=== PATIENT | female | born 1990 | race American Indian/Alaskan Native ===

== ENCOUNTER 2018-12-03 14:20 | Emergency (ER) | payer OTHER ==
--- NOTE | 2018-12-03 14:42 | Event Note ---
ED Screening Note ED Screening Note: pt present with c/o frontal MAN that began three days ago Nausea and one episode of vomiting hx of migraines states she has been taking BC powder, advil, aleve, tylenol, excedrin migraine LNMP: november 19, 2018 This initial assessment/diagnostic orders/clinical plan/treatment(s) is/are subject to change based on patients health status, clinical progression and re- assessment by fellow clinical providers in the ED. Further treatment and workup at subsequent clinical providers discretion. Patient/guardian urged not to elope from the ED as their condition may be serious if not clinically assessed and managed. Initial orders include: urine preg, UA
[2018-12-03 14:44] VITALS: BP 121/78
[2018-12-03 15:20] LABS: HCG Qualitative,Urine Negative (Negative)
[2018-12-03 15:23] LABS: Bilirubin,Urine NEG (Negative); Blood,Urine NEG (Negative); Color,Urine Straw (Yellow); Mucus,Urine FEW /HPF; Protein,Urine <15 mg/dL mg/dL (Negative); Urobilinogen,Urine < 2.0 mg/dL (<2.0); WBC,Urine < 1.0 /HPF (0.0-6.0)
[2018-12-03] MEDS ORDERED: ZOFRAN IM ONE (15:57)
[2018-12-03] MEDS ORDERED: TORADOL IM ONE (15:57)
--- NOTE | 2018-12-03 16:42 | Emergency Department Report ---
ED Headache HPI - General Chief Complaint: Headache Stated Complaint: HEADACHE Time Seen by Provider: 12/03/18 14:40 - History of Present Illness Initial Comments: Patient is a 28-year-old female past history of migraines was at a headache last 3 days. Left greater than right. Patient states [id number] medications are not helping. Patient denies nausea or light sensitivity. Patient states this is different from her normal migraine. Patient feels congestion in the face and a throbbing sensation. Patient states the pain is 6 out of 10 in severity. Patient believes she may have had a slight fever earlier today as well. Denies cough or sore throat neck stiffness. Allergies/Adverse Reactions: Allergies No Known Allergies Allergy (Verified 06/08/13 21:47) Home Medications: Ambulatory Orders Albuterol Sulfate [Accuneb] 1.25 mg IH TID PRN 06/09/13 Cetirizine HCl [Cetirizine 10mg chew] 10 mg PO DAILY 06/09/13 Mometasone/Formoterol [Dulera 100 Mcg/5 Mcg Inhaler] 2 puff IH QHS 06/09/13 Montelukast [Singulair] 10 mg PO DAILY 06/09/13 Citalopram [Celexa] 20 mg PO DAILY #7 tablet 06/12/13 Nicotine [Habitrol] 21 mg TD QDAY #7 patch 06/12/13 Amoxicillin/Potassium Clav [Augmentin 875-125 Tablet] 1 each PO BID #14 tablet 12/03/18 Fluticasone [Flonase] 1 spray NS QDAY #1 bottle 12/03/18 Ibuprofen [Motrin 600 MG tab] 600 mg PO Q8H PRN #20 tablet 12/03/18 predniSONE [Deltasone] 20 mg PO QDAY #5 tab 12/03/18 traMADol [Ultram] 50 mg PO Q6HR PRN #12 tablet 12/03/18 ED Review of Systems ROS: Stated complaint: HEADACHE Other details as noted in HPI Comment: All other systems reviewed and negative ED Past Medical Hx - Past Medical History Previous Medical History?: Yes Hx Congestive Heart Failure: No Hx Diabetes: No Hx Renal Disease: Yes Hx Headaches / Migraines: Yes Hx Asthma: Yes Hx COPD: No Additional medical history: previously treated for "kidney failure" - Surgical History Past Surgical History?: Yes Additional Surgical History: tonsillectomy - Social History Smoking Status: Current Every Day Smoker Substance Use Type: Alcohol, Marijuana - Medications Home Medications: Home Medications Medication Instructions Recorded Confirmed Last Taken Type Albuterol Sulfate [Accuneb] 1.25 mg IH TID PRN 06/09/13 06/09/13 Unknown History Cetirizine HCl [Cetirizine 10mg 10 mg PO DAILY 06/09/13 06/09/13 Unknown History chew] Mometasone/Formoterol [Dulera 100 2 puff IH QHS 06/09/13 06/09/13 05/13/13 History Mcg/5 Mcg Inhaler] 2 puffs Montelukast [Singulair] 10 mg PO DAILY 06/09/13 06/09/13 Unknown History Citalopram [Celexa] 20 mg PO DAILY #7 tablet 06/12/13 Unknown Rx Nicotine [Habitrol] 21 mg TD QDAY #7 patch 06/12/13 Unknown Rx Amoxicillin/Potassium Clav 1 each PO BID #14 tablet 12/03/18 Unknown Rx [Augmentin 875-125 Tablet] Fluticasone [Flonase] 1 spray NS QDAY #1 bottle 12/03/18 Unknown Rx Ibuprofen [Motrin 600 MG tab] 600 mg PO Q8H PRN #20 tablet 12/03/18 Unknown Rx predniSONE [Deltasone] 20 mg PO QDAY #5 tab 12/03/18 Unknown Rx traMADol [Ultram] 50 mg PO Q6HR PRN #12 tablet 12/03/18 Unknown Rx ED Physical Exam - General Limitations: No Limitations General appearance: alert, in no apparent distress - Head Head exam: Present: atraumatic, normocephalic - Expanded Head Exam Expanded 1 - tenderness - Eye Eye exam: Present: normal appearance, PERRL, EOMI - ENT ENT exam: Present: mucous membranes moist - Neck Neck exam: Present: normal inspection - Respiratory Respiratory exam: Present: normal lung sounds bilaterally. Absent: respiratory distress, wheezes, rales, rhonchi, stridor - Cardiovascular Cardiovascular Exam: Present: regular rate, normal rhythm. Absent: systolic murmur, diastolic murmur, rubs, gallop - GI/Abdominal GI/Abdominal exam: Present: soft, normal bowel sounds. Absent: distended, tenderness, guarding, rebound - Extremities Exam Extremities exam: Present: normal inspection - Back Exam Back exam: Present: normal inspection - Neurological Exam Neurological exam: Present: alert, oriented X3 - Psychiatric Psychiatric exam: Present: normal affect, normal mood - Skin Skin exam: Present: warm, dry, intact, normal color. Absent: rash ED Course Vital Signs 12/03/18 14:41 Temperature 98.5 F Pulse Rate 79 Respiratory 18 Rate Blood Pressure 121/78 O2 Sat by Pulse 99 Oximetry ED Medical Decision Making - Medical Decision Making Patient likely with the sinus infection. Patient is tender to palpation. Patie nt will be started on Augmentin and given medications for symptomatic relief. Critical care attestation.: If time is entered above; I have spent that time in minutes in the direct care of this critically ill patient, excluding procedure time. ED Disposition Clinical Impression: Acute sinus infection Qualifiers: Sinusitis location: frontal Recurrence: non-recurrent Qualified Code(s): J01.10 - Acute frontal sinusitis, unspecified Headache Qualifiers: Headache type: unspecified Headache chronicity pattern: acute headache Intractability: not intractable Qualified Code(s): R51 - Headache Disposition: DC-01 TO HOME OR SELFCARE Is pt being admited?: No Does the pt Need Aspirin: No Condition: Stable Instructions: Sinusitis (ED) Referrals: CHELSIE CALZADA MD [Primary Care Provider] - 3-5 Days Time of Disposition: 16:43
== END 2018-12-03 17:02 | disposition home or self-care (01) ==
LOC: ED 14:20
DX: J01.10 Acute frontal sinusitis, unspecified (principal); R51 Headache; G43.909 Migraine, unspecified, not intractable, without status migrainosus; J45.909 Unspecified asthma, uncomplicated; F17.200 Nicotine dependence, unspecified, uncomplicated; F12.10 Cannabis abuse, uncomplicated; Z90.89 Acquired absence of other organs; Z79.899 Other long term (current) drug therapy
CPT/HCPCS: 81001; 81025; 96372; 99283; J1885; J2405

== ENCOUNTER 2021-01-26 13:13 | Emergency (ER) | payer SELFPAY | END 2021-01-26 16:00 | disposition left against medical advice (07) | LOC: ED 13:13 | DX: K08.89 Other specified disorders of teeth and supporting structures (principal); Z53.21 Procedure and treatment not carried out due to patient leaving prior to being seen by health care provider ==